=== PATIENT | female | born 1970 | race Caucasian/White ===

== ENCOUNTER 2016-08-11 11:52 | Observation (INO) | payer BC, OTHER ==
[~2016-08-11] VITALS: Ht 177.8 cm; Wt 88.0 kg
[~2016-08-11 11:52] MED LIST: LEVAQUIN500 MG PO; LIORESAL10 MG PO; MERREM1 GM IV; MIRALAX17 GM PO; OXYCODONE-ACET1 EACH PO; PANTOPRAZOLE SO40 MG PO; REQUIP0.25 MG PO; TYLENOL325 M1 PO; ZANAFLEX4 M1 PO; ZOFRAN4 MG PO
[2016-08-11 14:01] LABS: BASO # 0.1 10_X3_uL (0.0-0.1); BASO % 1.8 % (0.1-1.2); EOS # 0.1 10_X3_uL (0.0-0.4); EOS % 2.1 % (0.7-5.8); GRAN # 2.3 10_X3_uL (1.6-6.1); GRAN % 58.6 % (34.0-71.1); HEMATOCRIT 40.4 % (34-45); HEMOGLOBIN 13.2 g/dL (11.2-15.7); LYMPH # 1.2 10_X3_uL (1.2-3.7); LYMPH % 31.1 % (19.3-51.7); MEAN CORPUSCULAR HEMOGLOBIN 31.1 pg (27.0-33.0); MEAN CORPUSCULAR HGB CONC 32.7 g/dL (32.0-36.0); MEAN CORPUSCULAR VOLUME 95.1 fL (79-95); MEAN PLATELET VOLUME 11.7 fl (7.5-11.5); MONO # 0.3 10_X3_uL (0.2-0.9); MONO % 6.4 % (4.7-12.5); PLATELET COUNT 144 x10_3/uL (182-369); RED BLOOD COUNT 4.25 x10_6/uL (3.9-5.2); RED CELL DISTRIBUTION WIDTH 13.3 % (11.7-14.4); WHITE BLOOD COUNT 3.9 x10_3/uL (4.0-10.0)
[2016-08-11 14:43] LABS: ALBUMIN 4.2 gm/dL (3.4-5.0); ALKALINE PHOSPHATASE 80 U/L (50-136); ALT/SGPT 12 U/L (3.5-33.9); AST/SGOT 16 U/L (7.04-26.96); BILIRUBIN,TOTAL 0.29 mg/dL (0.0-1.0); BLOOD UREA NITROGEN 12 mg/dL (7-18); CALCIUM 8.8 mg/dL (8.7-10.7); CARBON DIOXIDE 26 mmol/L (21-32); CREATININE 0.7 mg/dL (0.6-1.3); GLUCOSE,RANDOM 109 mg/dL (70-99); SODIUM 141 mmol/L (136-145); TOTAL PROTEIN 6.6 gm/dL (6.4-8.2)
[2016-08-13 07:01] LABS: HEMATOCRIT 36.2 % (34-45); HEMOGLOBIN 11.7 g/dL (11.2-15.7); MEAN CORPUSCULAR HGB CONC 32.3 g/dL (32.0-36.0); MEAN CORPUSCULAR VOLUME 95.8 fL (79-95); MEAN PLATELET VOLUME 11.4 fl (7.5-11.5); RED BLOOD COUNT 3.78 x10_6/uL (3.9-5.2); RED CELL DISTRIBUTION WIDTH 13.2 % (11.7-14.4); WHITE BLOOD COUNT 3.2 x10_3/uL (4.0-10.0)
[2016-08-13 07:23] LABS: BLOOD UREA NITROGEN 11 mg/dL (7-18); CALCIUM 8.4 mg/dL (8.7-10.7); CARBON DIOXIDE 28 mmol/L (21-32); CREATININE 0.6 mg/dL (0.6-1.3); GLUCOSE,RANDOM 87 mg/dL (70-99); POTASSIUM 4.5 mmol/L (3.5-5.1); SODIUM 143 mmol/L (136-145)
== END 2016-08-13 13:02 | disposition home or self-care (01) ==
LOC: MS 11:52
PROVIDERS: ADMIT Family Medicine
DX: N39.0 Urinary tract infection, site not specified (principal); B96.20 Unspecified Escherichia coli [E. coli] as the cause of diseases classified elsewhere; Z16.12 Extended spectrum beta lactamase (ESBL) resistance; M54.9 Dorsalgia, unspecified; R11.2 Nausea with vomiting, unspecified; R10.30 Lower abdominal pain, unspecified; I10 Essential (primary) hypertension; E05.00 Thyrotoxicosis with diffuse goiter without thyrotoxic crisis or storm; E78.5 Hyperlipidemia, unspecified; Z79.899 Other long term (current) drug therapy; Z79.891 Long term (current) use of opiate analgesic; Z83.3 Family history of diabetes mellitus; Z82.49 Family history of ischemic heart disease and other diseases of the circulatory system
CPT/HCPCS: 36415; 71260; 80048; 80053; 83605; 85025; 87040; 96361; 96365; 96366; 96367; 96372; 96375; 99070; G0378; J1335; Q0169